=== PATIENT | female | born 1985 | race Caucasian/White ===

== ENCOUNTER 2019-02-24 18:37 | Emergency (ER) | payer BC ==
--- NOTE | 2019-02-24 20:07 | EDM.PDOC ---
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 Patient is known to be Rh- and has had RhoGAM with 5 prior pregnancies. Review of systems: As per history of present illness and below otherwise all systems reviewed and negative. Past medical history: As per history of present illness and as reviewed below otherwise noncontributory. Surgical history: As per history of present illness and as reviewed below otherwise noncontributory. Social history: No reported history of drug or alcohol abuse. Family history: As per history of present illness and as reviewed below otherwise noncontributory. Physical exam: HEENT: Atraumatic, normocephalic, pupils reactive, negative for conjunctival pallor or scleral icterus, mucous membranes moist, throat clear, neck supple, nontender, trachea midline. Lungs: Clear to auscultation, breath sounds equal bilaterally, chest nontender. Heart: S1S2, regular, negative for clicks, rubs, or JVD. Abdomen: Soft, nondistended, nontender. Negative for masses or hepatosplenomegaly. Negative for costovertebral tenderness. Pelvis: Stable nontender. Genitourinary: Deferred. Rectal: Deferred. Extremities: Atraumatic, negative for cords or calf pain. Neurovascular unremarkable. Neuro: Awake, alert, oriented. Cranial nerves II through XII unremarkable. Cerebellum unremarkable. Motor and sensory unremarkable throughout. Exam nonfocal. Diagnostics: CBC CMP quantitative beta Therapeutics: RhoGAM per protocol Impression: #1 threatened Definitive disposition and diagnosis as appropriate pending reevaluation and review of above. 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 History: miscarriage 3 years ago Musculoskeletal History: Reports: None Neurological History: Reports: None Psychiatric History: Reports: None Endocrine/Metabolic History: Reports: Hypothyroidism Hematologic History: Reports: None Immunologic History: Reports: None Oncologic (Cancer) History: Reports: None Dermatologic History: Reports: None - Past Surgical History Head Surgeries/Procedures: Reports: None Social & Family History - Tobacco Use Smoking Status *Q: Never Smoker Second Hand Smoke Exposure: No - Caffeine Use Caffeine Use: Reports: None - Recreational Drug Use Recreational Drug Use: No ED ROS GENERAL - Review of Systems Review Of Systems: Comprehensive ROS is negative, except as noted in HPI. ED EXAM, GENERAL - Physical Exam Exam: See Below (See dictation) Course - Vital Signs Last Recorded V/S: Last Vital Signs Temp 36.2 C 02/24/19 19:14 Pulse 85 02/24/19 19:14 Resp 18 02/24/19 19:14 BP 125/69 02/24/19 19:14 Pulse Ox 98 02/24/19 19:14 - Orders/Labs/Meds Orders: Active Orders 24 hr Category Date Time Status ABO/RH TYPE [BBK] Stat Lab 02/24/19 18:51 Ordered CBC WITH AUTO DIFF [HEME] Stat Lab 02/24/19 18:51 Ordered HCG QUALITATIVE,URINE [URCHEM] Stat Lab 02/24/19 18:51 Ordered HCG QUANTITATIVE [CHEM] Stat Lab 02/24/19 18:51 Ordered RHOGAM, [RHIG WORKUP, ] [BBK] Stat Lab 02/24/19 19:58 Ordered UA RFX JESSICA AND CULT IF INDIC [URIN] Stat Lab 02/24/19 18:51 Ordered Departure - Departure Time of Disposition: 20:07 Disposition: Home, Self-Care 01 Condition: Good Clinical Impression: Threatened - Discharge Information Referrals: Provider,Unknown [Primary Care Provider] - Additional Instructions: The following information is given to patients seen in the emergency department who are being discharged to home. This information is to outline your options for follow-up care. We provide all patients seen in our emergency department with a follow-up referral. The need for follow-up, as well as the timing and circumstances, are variable depending upon the specifics of your emergency department visit. If you don't have a primary care physician on staff, we will provide you with a referral. We always advise you to contact your personal physician following an emergency department visit to inform them of the circumstance of the visit and for follow-up with them and/or the need for any referrals to a consulting specialist. The emergency department will also refer you to a specialist when appropriate. This referral assures that you have the opportunity for followup care with a specialist. All of these measure are taken in an effort to provide you with optimal care, which includes your followup. Under all circumstances we always encourage you to contact your private physician who remains a resource for coordinating your care. When calling for followup care, please make the office aware that this follow-up is from your recent emergency room visit. If for any reason you are refused follow-up, please contact the [facility] emergency department at and asked to speak to the emergency department charge nurse. Follow-up S[employer] OFFICER he has discussed vaginal rest as discussed return as needed as discussed - My Orders Last 24 Hours: My Active Orders 02/24/19 19:58 RHOGAM, [RHIG WORKUP, ] [BBK] Stat - Assessment/Plan Last 24 Hours: My Active Orders 02/24/19 19:58 RHOGAM, [RHIG WORKUP, ] [BBK] Stat
== END 2019-02-24 22:10 | disposition home or self-care (01) ==
LOC: MW.ED 18:37
DX: O20.0 Threatened abortion (principal); O99.281 Endocrine, nutritional and metabolic diseases complicating pregnancy, first trimester; E03.9 Hypothyroidism, unspecified; Z3A.01 Less than 8 weeks gestation of pregnancy; Z79.899 Other long term (current) drug therapy
CPT/HCPCS: 36415; 81001; 81025; 84702; 85025; 86850; 86900; 86901; 99284; J2792; 36430; 99283

== ENCOUNTER 2019-03-26 11:09 | Day surgery (SDC) | payer BC ==
[2019-03-26] MEDS ORDERED: fentaNYL 100 MCG/2 ML SDV ONE (11:35)
[2019-03-26] MEDS ORDERED: Propofol 200 MG/20 ML SDV ONE (11:35)
[2019-03-26] MEDS ORDERED: Midazolam 1 MG/ML 2 ML SDV ONE (11:36)
[2019-03-26] MEDS ORDERED: Glycopyrrolate 0.2 MG/ML SDV ONE (11:37)
[2019-03-26] MEDS ORDERED: Lidocaine 2% 5 ML SDV ONE (11:37)
[2019-03-26] MEDS ORDERED: Ondansetron 4 MG/2 ML SDV ONE (11:37)
[2019-03-26] MEDS ORDERED: fentaNYL 100 MCG/2 ML SDV IVPUSH PRN (11:42)
--- NOTE | 2019-03-26 11:44 | PCM.PREANE ---
Preanesthetic Assessment - Anesthesia/Transfusion/Family Hx Anesthesia History: Prior Anesthesia Reaction Other Type of Anesthesia Reaction Comment: "leaking" from her back after delivery- bad headache Family History of Anesthesia Reaction: No Transfusion History: No Prior Transfusion(s) - Review of Systems General: No Symptoms Pulmonary: No Symptoms Cardiovascular: No Symptoms Gastrointestinal: No Symptoms Neurological: No Symptoms Other: Reports: None - Physical Assessment NPO Status Date: 03/25/19 Height: 5 ft 3 in Weight: 76.921 kg ASA Class: 1 Mental Status: Alert & Oriented x3 Airway Class: Mallampati = 2 Dentition: Reports: Normal Dentition ROM/Head Extension: Full Lungs: Clear to Auscultation, Normal Respiratory Effort Cardiovascular: Regular Rate, Regular Rhythm - Lab Values: Laboratory Last Values HCG, Quant 5.0 mIU/mL 03/19/19 09:03 - Allergies Allergies/Adverse Reactions: Allergies Allergy/AdvReac Type Severity Reaction Status Date / Time No Known Allergies Allergy Verified 03/26/19 11:41 - Blood Blood Available: No - Anesthesia Plan Pre-Op Medication Ordered: None - Acknowledgements Anesthesia Type Planned: General Anesthesia Pt an Appropriate Candidate for the Planned Anesthesia: Yes Alternatives and Risks of Anesthesia Discussed w Pt/Guardian: Yes Pt/Guardian Understands and Agrees with Anesthesia Plan: Yes Additional Comments: PMH: rettained products after spont Ab, thyroid replacement PLAN: ga/lma PreAnesthesia Questionnaire HEENT History: Reports: None Cardiovascular History: Reports: None Respiratory History: Reports: None Gastrointestinal History: Reports: Other (See Below) Other Gastrointestinal History: occasional heartburn- takes Tums Genitourinary History: Reports: None 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: , Spontaneous Other OB/BYN History: miscarriage 3 years ago Musculoskeletal History: Reports: Fracture Other Musculoskeletal History: hx of fx foot Neurological History: Reports: Other (See Below) Other Neuro History: hx of motion sickness Psychiatric History: Reports: None Endocrine/Metabolic History: Reports: Hypothyroidism Hematologic History: Reports: None Immunologic History: Reports: None Oncologic (Cancer) History: Reports: None Dermatologic History: Reports: None - Past Surgical History Head Surgeries/Procedures: Reports: None HEENT Surgical History: Reports: Tonsillectomy Female Surgical History: Reports: Breast Biopsy, Section Other Female Surgeries/Procedures: x3 - HOME MEDS Home Medications: Home Meds Levothyroxine [Levothroid] 75 mcg PO QAM 02/24/19 [History] Azithromycin 500 mg PO DAILY 03/26/19 [History]
[2019-03-26] MEDS ORDERED: Doxycycline 100 MG Cap PO ONE ×3 (11:45→15:10)
[2019-03-26] MEDS ORDERED: Sodium Chloride 0.9% 10 ML SDV IV PRN (12:29)
[2019-03-26] MEDS ORDERED: Sodium Chloride 0.9% 2.5 ML Syringe FLUSH PRN (12:29)
[2019-03-26] MEDS ORDERED: Sodium Chloride 0.9% 10 ML Syringe FLUSH PRN (12:29)
[2019-03-26] MEDS ORDERED: Phenylephrine/Normal Saline 100 MCG/ML 10 ML Syringe ONE (12:53)
[2019-03-26] MEDS ORDERED: Promethazine 25 MG/ML SDV IM PRN (13:14)
[2019-03-26] MEDS ORDERED: Acetaminophen/oxyCODONE 325-5 MG Tab PO PRN ×2 (13:14)
[2019-03-26] MEDS ORDERED: Ketorolac 30 MG/ML SDV IVPUSH PRN (13:14)
[2019-03-26] MEDS ORDERED: Morphine 4 MG/ML Syringe IVPUSH PRN (13:14)
[2019-03-26] MEDS ORDERED: Ondansetron 4 MG/2 ML SDV IVPUSH PRN (13:14)
[2019-03-26] MEDS ORDERED: Ketorolac 30 MG/ML SDV IVPUSH ONE (13:14)
--- NOTE | 2019-03-26 13:21 | PCM.OPNOTE ---
- General Post-Op/Procedure Note Date of Surgery/Procedure: 03/26/19 Operative Procedure(s): Suction Dilatation and Curettage Findings: Minimal products of conception retrieved Pre Op Diagnosis: 33yo P5 with retained products Post-Op Diagnosis: none Anesthesia Technique: General ET Tube Primary Surgeon: Krissy Elias Anesthesia Provider: Ortiz Mary Pathology: Products of conception Fluid Replacement, Intraop: 1,500 EBL in mLs: 5 Complications: None Condition: Good
--- NOTE | 2019-03-26 13:32 | PCM.POSTAN ---
POST ANESTHESIA ASSESSMENT - MENTAL STATUS Mental Status: Alert, Oriented - VITAL SIGNS Vital Signs: Last Vital Signs Temp 37 C 03/26/19 13:03 Pulse 81 03/26/19 13:23 Resp 10 L 03/26/19 13:23 BP 114/79 03/26/19 13:23 Pulse Ox 100 03/26/19 13:23 - RESPIRATORY Respiratory Status: Respiratory Rate WNL, Airway Patent, O2 Saturation Stable - CARDIOVASCULAR CV Status: Pulse Rate WNL, Blood Pressure Stable - GASTROINTESTINAL GI Status: No Symptoms - PAIN Pain Score: 0 - POST OP HYDRATION Hydration Status: Adequate & Stable
--- NOTE | 2019-03-26 14:01 | PCM48HPAN ---
Post Anesthesia Note - EVALUATION WITHIN 48HRS OF ANESTHETIC Vital Signs in Normal Range: Yes Patient Participated in Evaluation: Yes Respiratory Function Stable: Yes Airway Patent: Yes Cardiovascular Function Stable: Yes Hydration Status Stable: Yes Pain Control Satisfactory: Yes Nausea and Vomiting Control Satisfactory: Yes Mental Status Recovered: Yes Vital Signs: Last Vital Signs Temp 37 C 03/26/19 13:03 Pulse 75 03/26/19 13:28 Resp 12 03/26/19 13:28 BP 113/70 03/26/19 13:28 Pulse Ox 100 03/26/19 13:28
[2019-03-26] MEDS ORDERED: Lactated Ringers 1,000 ML IV SCH (14:30)
--- NOTE | 2019-04-05 15:02 | OR ---
SURGEON: JESUS HART DATE OF PROCEDURE: 03/26/2019 PREOPERATIVE DIAGNOSIS: A 33-year-old, para 5, with retained products of conception. POSTOPERATIVE DIAGNOSIS: A 33-year-old, para 5, with retained products of conception. ESTIMATED BLOOD LOSS: 5 mL. INTRAVENOUS FLUID: 1500. NOTES AND FINDINGS: Normal-sized anteverted uterus, minimal products of conception retrieved, and the patient tolerated procedure. BRIEF HISTORY: A 33-year-old, para 5, who had a history of retained products of conception. She has done medical management x3 with Cytotec, Methergine, and Cytotec; however, ultrasound done showed some products of conception in the uterus. The patient was counseled for suction D and C, which she finally did agree to. She was explained the risks, benefits, and alternatives, and she decided to proceed. DESCRIPTION OF PROCEDURE: The patient was taken to the operating room where general anesthesia was performed without difficulty. She was prepared and draped in the dorsolithotomy position with Austin stirrups. The bladder was emptied with straight catheterization. The cervix was exposed with a speculum. The anterior lip of the cervix was grasped with the Allis forceps, then a curved 8 mm curette was advanced into the uterus and suction pressure was obtained with the machine. With rotatory motion, products of conception were evacuated from the uterus. After which, a 4 mm sharp curette was advanced into the uterus to the fundus, and all the brown of the uterus were curetted gently. Then, the suction curette was then placed in to remove the remaining products within the uterus. Uterus was noted to be firm. After the procedure, the Allis was removed the anterior lip of the cervix . The speculum was removed. The patient tolerated the procedure well and was taken to the recovery room in stable condition. DAMIEN / EITAN /[id number] VERONA
== END 2019-03-26 15:50 | disposition home or self-care (01) ==
LOC: MW.SDS 11:09
PROVIDERS: ATTEND Obstetrics & Gynecology
DX: O03.4 Incomplete spontaneous abortion without complication (principal); E03.9 Hypothyroidism, unspecified; G43.909 Migraine, unspecified, not intractable, without status migrainosus
CPT/HCPCS: 36415; 59812; 85007; 85027; 86850; 86870; 86900; 86901; 88305; A9270; J2001; J2250; J2370; J2405; J2704; J3010; J3490; J7120; 00940

== ENCOUNTER 2021-08-20 21:26 | Emergency (ER) | payer BC ==
[2021-08-20] MEDS ORDERED: Ondansetron 4 MG/2 ML SDV IVPUSH ONE (21:49)
[2021-08-20] MEDS ORDERED: Sodium Chloride 0.9% 1,000 ML IV ONE (21:49)
[2021-08-20 23:17] LABS: BLOOD UREA NITROGEN,BUN 10 mg/dL (7.0-18.0); CARBON DIOXIDE,CO2 23.5 mmol/L (21.0-32.0); CHLORIDE,CL 104 mmol/L (98-107); GLUCOSE RANDOM 93 mg/dL (74-106); POTASSIUM,K 3.8 mmol/L (3.5-5.1); SODIUM,NA 137 mmol/L (136-145)
[2021-08-21] MEDS ORDERED: Loperamide 2 MG Cap PO STA (00:28)
== END 2021-08-21 00:53 | disposition home or self-care (01) ==
LOC: MW.ED 21:26
DX: O03.9 Complete or unspecified spontaneous abortion without complication (principal); R19.7 Diarrhea, unspecified; E03.9 Hypothyroidism, unspecified; Z79.899 Other long term (current) drug therapy
CPT/HCPCS: 36415; 76815; 80053; 81001; 84702; 85025; 96374; 99284; A9270; J2405; J7030

== ENCOUNTER 2022-04-15 18:47 | Observation (INO) | payer SELFPAY ==
[2022-04-15] MEDS ORDERED: Sodium Chloride 0.9% 10 ML Syringe FLUSH PRN (19:18)
[2022-04-15] MEDS ORDERED: Acetaminophen 325 MG Tab PO ONE (19:21)
[2022-04-15] MEDS ORDERED: Sodium Chloride 0.9% 1,000 ML IV ONE (19:21)
[2022-04-15] MEDS: Sodium Chloride 0.9% 2.5 ML Syringe FLUSH PRN ×2 (19:32→20:51)
[2022-04-15] MEDS: Ondansetron 4 MG/2 ML SDV IVPUSH ONE ×2 (19:32→20:51)
[2022-04-15 20:05] LABS: CORONAVIRUS COVID-19 NAA NEGATIVE (NEGATIVE); INFLUENZA A NAA NEGATIVE (NEGATIVE); INFLUENZA B NAA NEGATIVE (NEGATIVE); RESPIRATORY SYNCYTIAL VIR NAA NEGATIVE (NEGATIVE)
[2022-04-15 21:34] LABS: CARBON DIOXIDE,CO2 24.8 mmol/L (21.0-32.0); POTASSIUM,K 3.5 mmol/L (3.5-5.1)
[2022-04-15] MEDS ORDERED: Iopamidol 755 MG/ML 500 ML Multipack Bottle IVPUSH STA (23:07)
[2022-04-16 06:52] LABS: CARBON DIOXIDE,CO2 25.2 mmol/L (21.0-32.0); POTASSIUM,K 3.8 mmol/L (3.5-5.1)
[2022-04-16] MEDS ORDERED: Ondansetron 4 MG/2 ML SDV IVPUSH PRN (09:00)
[2022-04-16] MEDS ORDERED: Acetaminophen 325 MG Tab PO PRN (09:00)
[2022-04-16] MEDS ORDERED: Sodium Ferric Gluconate Cmplex 125 MG in Sodium Chloride 0.9% 100 ML IV ONE (10:30)
== END 2022-04-16 13:55 | disposition home or self-care (01) ==
LOC: MW.ED 18:47 → MW.MS 04-16 00:22
PROVIDERS: ADMIT Internal Medicine; ATTEND Internal Medicine
DX: D64.9 Anemia, unspecified (principal); K66.1 Hemoperitoneum; E03.9 Hypothyroidism, unspecified; Z79.899 Other long term (current) drug therapy; Z79.890 Hormone replacement therapy; Z20.822 Contact with and (suspected) exposure to COVID-19; Z98.890 Other specified postprocedural states
CPT/HCPCS: 0241U; 36415; 74177; 76705; 76801; 80048; 80053; 81001; 81025; 83690; 83735; 84100; 84702; 85025; 86140; 93005; 96361; 96365; 96375; 99285; A9270; G0378; J2405; J2916; J3490; J7030; Q9967; 96374